=== PATIENT | male | born 1960 | race Caucasian/White ===

== ENCOUNTER 2022-04-08 10:30 | Outpatient (CLI) | payer MEDICARE, SELFPAY | END 2022-04-08 10:31 | disposition home or self-care (01) | LOC: ANHAUDIO 10:32 | PROVIDERS: PCP Internal Medicine; Visit Provider Otolaryngology | DX: H90.3 Sensorineural hearing loss, bilateral (principal) | CPT/HCPCS: 92557; 92567 ==

== ENCOUNTER 2022-11-27 01:00 | Day surgery (SDC) | payer MEDICARE, SELFPAY ==
[2022-07-10 15:40] VITALS: BMI 27.4
[2022-11-19 10:41] VITALS: BMI 25.5
[2022-11-27 07:16] VITALS: BP 152/76; PULSE 102; RESP 17; TEMP 36.4; O2SAT 100; BMI 24.3
[2022-11-27] MEDS: LACTATED RINGERS 1,000 ML 150 ML IV CONT (07:25)
--- NOTE | 2022-11-27 08:00 | WPDANESEPPF ---
Anes - Initial Pre Proc Eval Procedure: Operation Date: 11/27/22 08:45 Proposed Procedures p Screening Colonoscopy - Carmelo Nolasco MD Date/Time: 11/27/22 08:00 Surgeon: Carmelo Nolasco MD Pre Op Diagnosis: hx colon ca Patient Data Age: 61 Gender: M Height: 1.73 m Weight: 72.4 kg Last Vital Signs Temp 97.5 F L 11/27/22 07:16 Pulse 102 H 11/27/22 07:16 Resp 17 11/27/22 07:16 BP 152/76 H 11/27/22 07:16 Pulse Ox 100 11/27/22 07:16 O2 Del Method Room Air 11/27/22 07:16 Allergies Allergy/AdvReac Type Severity Reaction Status Date / Time tramadol Allergy Severe shakes Verified 11/27/22 07:15 codeine Allergy Mild Unknown Verified 11/27/22 07:15 Home Medications Medication Instructions Recorded Confirmed Type albuterol sulfate 90 mcg/actuation 1 puff inhalation Q4H PRN 03/05/22 11/27/22 History aerosol inhaler Shortness Of Breath amitriptyline 25 mg tablet 25 mg PO QHS 03/05/22 11/27/22 History apixaban 5 mg tablet (Eliquis) 5 mg PO BID 03/05/22 11/27/22 History atorvastatin 40 mg tablet 40 mg PO DAILY 03/05/22 11/27/22 History carvedilol 6.25 mg tablet 6.25 mg PO Q12H 03/05/22 11/27/22 History clopidogrel 75 mg tablet 75 mg PO DAILY 03/05/22 11/27/22 History gabapentin 800 mg tablet 800 mg PO TID 03/05/22 11/27/22 History icosapent ethyl 1 gram capsule 2 g PO BID 03/05/22 11/27/22 History (Vascepa) losartan 100 mg tablet 100 mg PO DAILY 03/05/22 11/27/22 History multivitamin 1 tablet PO DAILY 03/05/22 11/27/22 History tiotropium bromide 2.5 2 puff inhalation DAILY 03/05/22 11/27/22 History mcg/actuation mist for inhalation (Spiriva Respimat) Patient hx anesthesia problems: none Family hx anesthesia problems: none Results Review: All pre-operative results and documents have been reviewed as part of the pre-operative evaluation. [facility] Social History Social History Smoking packs per day: 2 Smoking cigarettes per day: 40.0 Years smoked: 25 Smoking pack-years: 50.00 Smoking status: Former smoker Tobacco type: cigarettes Smoking end date: 12/01/17 Alcohol intake: current Alcohol use details: seldom Substance use: current Substance use type: marijuana Other substance usage details: 2x weekly Living arrangements: with family Spiritual care concerns: No Anes - Eval Final PreProcedure Day of Procedure 11/27/22 08:00 Patient weight: normal Heart: regular rate and rhythm Lungs: clear to auscultation Airway: Mallampati scale class II Neurological: alert and oriented Last oral intake: >/= 8 hours ASA classification: III Emergent: no Anesthetic plan: proceed Anesthesia type and monitoring: general GIVS and standard monitoring Results Review: All pre-operative results and documents have been reviewed as part of the pre-operative evaluation. Informed Consent: The patient's anesthetic plan and its attendant risks and benefits were discussed with the patient/family/POA. Questions were solicited and answers provided to the satisfaction of the patient/family/POA.
--- NOTE | 2022-11-27 08:29 | PM.HPGS ---
History of Present Illness History of Present Illness Consent: Risks, benefits, and alternatives have been discussed and questions answered. Patient agrees to proceed with procedure. Chief complaint: hx colon ca Narrative: Satya Carrizales is a 61 year old male with colon cancer in 2019 s/p surgery, did not require chemotherapy Review of Systems Constitutional: Constitutional: Denies headache(s) and Denies weakness Eyes: Eyes: Denies blurry vision ENT: Reports Normal hearing present, Denies headache(s) and Denies neck pain Cardiovascular: Cardiovascular: Denies chest pain and Denies dyspnea Respiratory: Respiratory: Denies dyspnea Gastrointestinal: Gastrointestinal: Reports no additional gastrointestinal complaints Genitourinary: Genitourinary: Denies dysuria Musculoskeletal: Musculoskeletal: Denies neck pain Integumentary/Breasts: Skin/Breast: Denies dry skin Neurologic: Reports Normal hearing present, Denies headache(s) and Denies weakness Psychiatric: Psychiatric: Denies anxiety Endocrine: Endocrine: Denies change in body appearance Hematologic/Lymphatic: Hematologic/Lymphatic: Denies easy bleeding Allergic/Immunologic: Allergic/Immunologic: Denies urticaria PMF Past Medical History Medical History (Updated 11/27/22 @ 08:30 by Carmelo Nolasco MD) Colon cancer Social History Social History Smoking packs per day: 2 Smoking cigarettes per day: 40.0 Years smoked: 25 Smoking pack-years: 50.00 Smoking status: Former smoker Tobacco type: cigarettes Smoking end date: 12/01/17 Alcohol intake: current Alcohol use details: seldom Substance use: current Substance use type: marijuana Other substance usage details: 2x weekly Living arrangements: with family Spiritual care concerns: No Meds Home Medications and Allergies Home Medications Medication Instructions Recorded Confirmed Type albuterol sulfate 90 mcg/actuation 1 puff inhalation Q4H PRN 03/05/22 11/27/22 History aerosol inhaler Shortness Of Breath amitriptyline 25 mg tablet 25 mg PO QHS 03/05/22 11/27/22 History apixaban 5 mg tablet (Eliquis) 5 mg PO BID 03/05/22 11/27/22 History atorvastatin 40 mg tablet 40 mg PO DAILY 03/05/22 11/27/22 History carvedilol 6.25 mg tablet 6.25 mg PO Q12H 03/05/22 11/27/22 History clopidogrel 75 mg tablet 75 mg PO DAILY 03/05/22 11/27/22 History gabapentin 800 mg tablet 800 mg PO TID 03/05/22 11/27/22 History icosapent ethyl 1 gram capsule 2 g PO BID 03/05/22 11/27/22 History (Vascepa) losartan 100 mg tablet 100 mg PO DAILY 03/05/22 11/27/22 History multivitamin 1 tablet PO DAILY 03/05/22 11/27/22 History tiotropium bromide 2.5 2 puff inhalation DAILY 03/05/22 11/27/22 History mcg/actuation mist for inhalation (Spiriva Respimat) Allergies Allergy/AdvReac Type Severity Reaction Status Date / Time tramadol Allergy Severe shakes Verified 11/27/22 07:15 codeine Allergy Mild Unknown Verified 11/27/22 07:15 Vital Signs Vital Signs - 24 hr 11/27/22 07:16 Temperature 97.5 F L Pulse Rate 102 H Respiratory Rate 17 Blood Pressure 152/76 H Pulse Oximetry 100 Oxygen Delivery Room Air Exam Const: General: comfortable and no acute distress HENMT: Face/Nose/Sinus: Normal nares present Eyes: General: appearance normal, both eyes and all related structures Neck: Neck: no JVD Resp: Auscultation: clear to auscultation bilaterally Cardio: Rate: regular rate Rhythm: regular rhythm GI: Inspection: non-distended GI Palp: Yes Soft to palpation Skin: General skin exam: normal color Neuro: General: gait normal Speech: normal speech Extrem: General: normal to inspection Psych: Mental Status: mental status grossly normal Assessment and Plan Assessment and plan (1) Colon cancer: Code(s): C18.9 - Malignant neoplasm of colon, unspecified Status: Acute Assessme
[2022-11-27 08:54] VITALS: BP 133/81; PULSE 93; RESP 18; O2SAT 99
[2022-11-27 09:04] VITALS: BP 144/87; PULSE 88; RESP 22; O2SAT 99
[2022-11-27 09:14] VITALS: BP 178/93; PULSE 84; RESP 16; O2SAT 100
== END 2022-11-27 09:24 | disposition home or self-care (01) ==
PROVIDERS: PCP Internal Medicine; Visit Provider Internal Medicine Gastroenterology
PROC: 0DJD8ZZ Inspection of Lower Intestinal Tract, Via Natural or Artificial Opening Endoscopic (ICD-10-PCS; CPT 45378; principal; 2022-11-27 08:45)
DX: Z12.11 Encounter for screening for malignant neoplasm of colon (principal); D12.5 Benign neoplasm of sigmoid colon; K63.5 Polyp of colon; K64.8 Other hemorrhoids; Z85.038 Personal history of other malignant neoplasm of large intestine; Z98.0 Intestinal bypass and anastomosis status; Z90.49 Acquired absence of other specified parts of digestive tract; Z79.51 Long term (current) use of inhaled steroids; Z79.01 Long term (current) use of anticoagulants; Z79.02 Long term (current) use of antithrombotics/antiplatelets; Z87.891 Personal history of nicotine dependence; F12.90 Cannabis use, unspecified, uncomplicated
CPT/HCPCS: 45385; 88305; J2704; J7120

== ENCOUNTER 2023-03-25 01:08 | Day surgery (SDC) | payer MEDICARE, SELFPAY ==
[2023-03-14 14:07] VITALS: BMI 25.9
[2023-03-25 10:55] VITALS: BP 164/72; PULSE 84; RESP 19; TEMP 36.4; O2SAT 100
[2023-03-25] MEDS: LACTATED RINGERS 1,000 ML 150 ML IV CONT (11:09)
--- NOTE | 2023-03-25 11:43 | WPDANESEPPF ---
Anes - Initial Pre Proc Eval Procedure: Operation Date: 03/25/23 12:30 Proposed Procedures p Esophagogastroduodenoscopy - Carmelo Nolasco MD Date/Time: 03/25/23 11:43 Surgeon: Carmelo Nolasco MD Pre Op Diagnosis: abnormal radiology findings Patient Data Age: 62 Gender: M Height: 1.73 m Weight: 74.5 kg Last Vital Signs Temp 36.4 C L 03/25/23 10:55 Pulse 84 03/25/23 10:55 Resp 19 03/25/23 10:55 BP 164/72 H 03/25/23 10:55 Pulse Ox 100 03/25/23 10:55 O2 Del Method Room Air 03/25/23 10:55 Allergies Allergy/AdvReac Type Severity Reaction Status Date / Time tramadol Allergy Severe shakes Verified 03/25/23 10:52 codeine Allergy Mild Unknown Verified 03/25/23 10:52 Home Medications Medication Instructions Recorded Confirmed Type albuterol sulfate 90 mcg/actuation 1 puff inhalation Q4H PRN 03/05/22 03/14/23 History aerosol inhaler Shortness Of Breath amitriptyline 25 mg tablet 25 mg PO QHS 03/05/22 03/14/23 History apixaban 5 mg tablet (Eliquis) 5 mg PO BID 03/05/22 03/14/23 History atorvastatin 40 mg tablet 40 mg PO DAILY 03/05/22 03/14/23 History gabapentin 800 mg tablet 800 mg PO TID 03/05/22 03/14/23 History icosapent ethyl 1 gram capsule 2 g PO BID 03/05/22 03/14/23 History (Vascepa) losartan 100 mg tablet 100 mg PO DAILY 03/05/22 03/14/23 History tiotropium bromide 2.5 2 puff inhalation DAILY 03/05/22 03/14/23 History mcg/actuation mist for inhalation (Spiriva Respimat) Iron (ferrous sulfate) 150 mg PO DAILY 03/14/23 03/14/23 History carvedilol 12.5 mg tablet 12.5 mg PO BID 03/14/23 03/14/23 History [id number] 150 mcg-vit K1 1 tablet PO DAILY 03/14/23 03/14/23 History 30 mcg-lycop 300 mcg-lutein tablet (Centrum Men 50 Plus Minis) Patient hx anesthesia problems: none Family hx anesthesia problems: none Results Review: All pre-operative results and documents have been reviewed as part of the pre-operative evaluation. [facility] Past Medical History Medical History Colon cancer Social History Social History Smoking packs per day: 2 Smoking cigarettes per day: 40.0 Years smoked: 25 Smoking pack-years: 50.00 Smoking status: Former smoker Tobacco type: cigarettes Smoking end date: 12/01/17 Alcohol intake: current Drinks per week: 2 Alcohol use details: seldom Substance use: current Substance use type: marijuana Other substance usage details: OCCASIONAL Living arrangements: with family Spiritual care concerns: No Anes - Eval Final PreProcedure Day of Procedure 03/25/23 11:43 Patient weight: normal Heart: regular rate and rhythm Lungs: decreased breath sounds Airway: Mallampati scale class II Neurological: alert and oriented Last oral intake: >/= 8 hours ASA classification: IV Emergent: no Anesthetic plan: proceed Anesthesia type and monitoring: general GIVS and standard monitoring Results Review: All pre-operative results and documents have been reviewed as part of the pre-operative evaluation. Informed Consent: The patient's anesthetic plan and its attendant risks and benefits were discussed with the patient/family/POA. Questions were solicited and answers provided to the satisfaction of the patient/family/POA.
--- NOTE | 2023-03-25 12:32 | PM.HPGS ---
History of Present Illness History of Present Illness Consent: Risks, benefits, and alternatives have been discussed and questions answered. Patient agrees to proceed with procedure. Chief complaint: abnormal radiology findings Narrative: Satya Carrizales is a 62 year old male wiht colon cancer 2019 s/p surgery, last year had colonoscopy with polyps removed. Recent imaging showed possible thickening of esophagus but denies gerd or abdominal pain. Review of Systems Constitutional: Constitutional: Denies headache(s) and Denies weakness Eyes: Eyes: Denies blurry vision ENT: Reports Normal hearing present, Denies headache(s) and Denies neck pain Cardiovascular: Cardiovascular: Denies chest pain and Denies dyspnea Respiratory: Respiratory: Denies dyspnea Gastrointestinal: Gastrointestinal: Reports no additional gastrointestinal complaints Genitourinary: Genitourinary: Denies dysuria Musculoskeletal: Musculoskeletal: Denies neck pain Integumentary/Breasts: Skin/Breast: Denies dry skin Neurologic: Reports Normal hearing present, Denies headache(s) and Denies weakness Psychiatric: Psychiatric: Denies anxiety Endocrine: Endocrine: Denies change in body appearance Hematologic/Lymphatic: Hematologic/Lymphatic: Denies easy bleeding Allergic/Immunologic: Allergic/Immunologic: Denies urticaria PMFSH Past Medical History Medical History (Updated 03/25/23 @ 12:33 by Carmelo Nolasco MD) Abnormal CT scan, esophagus Colon cancer Social History Social History Smoking packs per day: 2 Smoking cigarettes per day: 40.0 Years smoked: 25 Smoking pack-years: 50.00 Smoking status: Former smoker Tobacco type: cigarettes Smoking end date: 12/01/17 Alcohol intake: current Drinks per week: 2 Alcohol use details: seldom Substance use: current Substance use type: marijuana Other substance usage details: OCCASIONAL Living arrangements: with family Spiritual care concerns: No Meds Home Medications and Allergies Home Medications Medication Instructions Recorded Confirmed Type albuterol sulfate 90 mcg/actuation 1 puff inhalation Q4H PRN 03/05/22 03/14/23 History aerosol inhaler Shortness Of Breath amitriptyline 25 mg tablet 25 mg PO QHS 03/05/22 03/14/23 History apixaban 5 mg tablet (Eliquis) 5 mg PO BID 03/05/22 03/14/23 History atorvastatin 40 mg tablet 40 mg PO DAILY 03/05/22 03/14/23 History gabapentin 800 mg tablet 800 mg PO TID 03/05/22 03/14/23 History icosapent ethyl 1 gram capsule 2 g PO BID 03/05/22 03/14/23 History (Vascepa) losartan 100 mg tablet 100 mg PO DAILY 03/05/22 03/14/23 History tiotropium bromide 2.5 2 puff inhalation DAILY 03/05/22 03/14/23 History mcg/actuation mist for inhalation (Spiriva Respimat) Iron (ferrous sulfate) 150 mg PO DAILY 03/14/23 03/14/23 History carvedilol 12.5 mg tablet 12.5 mg PO BID 03/14/23 03/14/23 History [id number] 150 mcg-vit K1 1 tablet PO DAILY 03/14/23 03/14/23 History 30 mcg-lycop 300 mcg-lutein tablet (Centrum Men 50 Plus Minis) Allergies Allergy/AdvReac Type Severity Reaction Status Date / Time tramadol Allergy Severe shakes Verified 03/25/23 10:52 codeine Allergy Mild Unknown Verified 03/25/23 10:52 Vital Signs Vital Signs - 24 hr 03/25/23 10:55 Temperature 97.5 F L Pulse Rate 84 Respiratory Rate 19 Blood Pressure 164/72 H Pulse Oximetry 100 Oxygen Delivery Room Air Exam Const: General: comfortable and no acute distress HENMT: Face/Nose/Sinus: Normal nares present Eyes: General: appearance normal, both eyes and all related structures Neck: Neck: no JVD Resp: Auscultation: clear to auscultation bilaterally Cardio: Rate: regular rate Rhythm: regular rhythm GI: Inspection: non-distended GI Palp: Yes Soft to palpation Skin: General skin exam: normal color Neuro: General: gait normal Speech: normal speec
[2023-03-25 12:45] VITALS: BP 133/73; PULSE 84; RESP 20; O2SAT 100
[2023-03-25 12:55] VITALS: BP 143/78; PULSE 78; RESP 22; O2SAT 100
[2023-03-25 13:05] VITALS: BP 149/75; PULSE 69; RESP 19; O2SAT 100
== END 2023-03-25 13:14 | disposition home or self-care (01) ==
PROVIDERS: PCP Nurse Practitioner Family; Visit Provider Internal Medicine Gastroenterology
PROC: 0DJ08ZZ Inspection of Upper Intestinal Tract, Via Natural or Artificial Opening Endoscopic (ICD-10-PCS; CPT 43235; principal; 2023-03-25 12:30)
DX: K21.00 Gastro-esophageal reflux disease with esophagitis, without bleeding (principal); K29.70 Gastritis, unspecified, without bleeding; Z79.51 Long term (current) use of inhaled steroids; Z79.01 Long term (current) use of anticoagulants; Z85.038 Personal history of other malignant neoplasm of large intestine; Z86.010 Personal history of colon polyps; F12.90 Cannabis use, unspecified, uncomplicated; Z87.891 Personal history of nicotine dependence
CPT/HCPCS: 43239; 88305; J2704; J7120

== ENCOUNTER 2025-03-07 09:07 | Outpatient (CLI) | payer MEDICARE, SELFPAY ==
--- NOTE | ~2025-03-07 | US_ITS ---
Limited Abdominal Sonogram: Real-time sonographic imaging of the right upper quadrant was performed. Clinical History: Abnormal LFTs Findings: The liver appears normal with no evidence of mass lesion or bile duct dilatation. Main por heidi vein demonstrates normal direction of flow. The gallbladder is well distended, and appears normal with no evidence of gallstone or wall thickening. The common bile duct measures 3 mm. The visualize d pancreas, aorta, and IVC are unremarkable. Impression: No significant abnormality seen. Reviewed, dictated and finalized at location . Impression: No significant abnormality seen.
== END 2025-03-07 09:08 | disposition home or self-care (01) ==
LOC: GOSHIMG 09:07
PROVIDERS: PCP Internal Medicine; Visit Provider Internal Medicine
DX: R94.5 Abnormal results of liver function studies (principal)
CPT/HCPCS: 76705